=== PATIENT | male | born 1990 | race Caucasian/White ===

== ENCOUNTER 2018-07-24 19:16 | Emergency (ER) | payer MEDICAID ==
[2018-07-24] MEDS ORDERED: Sodium Chloride 0.9% 10 ML Syringe FLUSH PRN (20:20)
[2018-07-24] MEDS ORDERED: Ketorolac 30 MG/ML SDV IVPUSH ONE (20:20)
[2018-07-24] MEDS ORDERED: Ondansetron 4 MG/2 ML SDV IVPUSH ONE (20:20)
[2018-07-24] MEDS ORDERED: Sodium Chloride 0.9% 1,000 ML IV ONE ×2 (20:20→21:27)
--- NOTE | 2018-07-24 22:12 | EDM.PDOC ---
ED HPI GENERAL MEDICAL PROBLEM - General Chief Complaint: Gastrointestinal Problem Stated Complaint: VOMITING Time Seen by Provider: 07/24/18 20:13 Source of Information: Reports: Patient History Limitations: Reports: No Limitations - History of Present Illness INITIAL COMMENTS - FREE TEXT/NARRATIVE: This gentleman comes in with flulike symptoms since this morning. He said he's vomited a number of times. He has a low-grade fever but severe body aches and abdominal cramps. He did not get a flu shot. He says he doesn't believe in them. He hasn't had a bowel movement for about 2 days. 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: none - Related Data Allergies Allergy/AdvReac Type Severity Reaction Status Date / Time No Known Allergies Allergy Verified 07/24/18 19:34 Home Meds: Home Meds NK [No Known Home Meds] 07/24/18 [History] Social & Family History - Tobacco Use Smoking Status *Q: Never Smoker Second Hand Smoke Exposure: No - Caffeine Use Caffeine Use: Reports: Coffee, Energy Drinks Other Caffeine Use: moderation - Alcohol Use Days Per Week of Alcohol Use: 2 Number of Drinks Per Day: 4 Total Drinks Per Week: 8 - Recreational Drug Use Recreational Drug Use: No ED ROS GENERAL - Review of Systems Review Of Systems: See Below Constitutional: Reports: Fever, Chills HEENT: Reports: No Symptoms Respiratory: Reports: No Symptoms Cardiovascular: Reports: No Symptoms Endocrine: Reports: No Symptoms GI/Abdominal: Reports: Abdominal Pain, Vomiting. Denies: Diarrhea : Reports: No Symptoms Musculoskeletal: Reports: No Symptoms Skin: Reports: No Symptoms Neurological: Reports: No Symptoms Psychiatric: Reports: No Symptoms Hematologic/Lymphatic: Reports: No Symptoms Immunologic: Reports: No Symptoms ED EXAM, GI/ABD - Physical Exam Exam: See Below Exam Limited By: No Limitations General Appearance: Alert, WD/WN, Mild Distress Eyes: Bilateral: Normal Appearance Ears: Normal External Exam Nose: Normal Inspection Throat/Mouth: Normal Inspection Head: Atraumatic Neck: Normal Inspection Respiratory/Chest: No Respiratory Distress, Lungs Clear Cardiovascular: Normal Peripheral Pulses, Regular Rate, Rhythm, No Murmur GI/Abdominal Exam: Normal Bowel Sounds, Soft, Non-Tender Back Exam: Normal Inspection Extremities: Normal Inspection Neurological: Alert, Oriented Psychiatric: Normal Affect Skin Exam: Warm, Dry Course - Vital Signs Last Recorded V/S: Last Vital Signs Temp 38.0 C 07/24/18 19:35 Pulse 109 H 07/24/18 19:35 Resp 16 07/24/18 19:35 BP 132/86 07/24/18 19:35 Pulse Ox 98 07/24/18 19:35 - Orders/Labs/Meds Orders: Active Orders 24 hr Category Date Time Status Sodium Chloride 0.9% [Normal Saline] 1,000 ml Med 07/24/18 21:27 Active IV .BOLUS Sodium Chloride 0.9% [Saline Flush] Med 07/24/18 20:20 Active 10 ml FLUSH ASDIRECTED PRN Saline Lock Insert [OM.PC] Urgent Oth 07/24/18 20:19 Ordered Medication Orders Sodium Chloride (Normal Saline) 1,000 mls @ 999 mls/hr IV .BOLUS ONE Stop: 07/24/18 22:27 Last Admin: 07/24/18 21:43 Dose: 999 mls/hr Sodium Chloride (Saline Flush) 10 ml FLUSH ASDIRECTED PRN PRN Reason: Keep Vein Open Last Admin: 07/24/18 20:59 Dose: 10 ml Labs: Laboratory Tests 07/24/18 07/24/18 07/24/18 Range/Units 20:44 20:44 21:14 WBC 8.7 (4.5-11.0) K/uL RBC 5.35 (4.30-5.90) M/uL Hgb 15.9 H (12.0-15.0) g/dL Hct 46.2 (40.0-54.0) % MCV 86 (80-98) fL MCH 30 (27-31) pg MCHC 34 (32-36) % Plt Count 199 (150-400) K/uL Neut % (Auto) 88 H (36-66) % Lymph % (Auto) 4 L (24-44) % [place] % (Auto) 8 H (2-6) % Eos % (Auto) 0 L (2-4) % Baso % (Auto) 0 (0-1) % Sodium 138 L (140-148) mmol/L Potassium 3.5 L (3.6-5.2) mmol/L Chloride 100 (100-108) mmol/L Carbon Dioxide 27 (21-32) mmol/L Anion Gap 14.5 H (5.0-14.0) mmol/L BUN 25 H (7-18) mg/dL Creatinine 1.2 (0.8-1.3) mg/dL Est Cr Clr Drug Dosing 86.40 mL/min Estimated GFR (MDRD) > 60 (>60) Glucose 121 H (74-106) mg/dL Calcium 8.7 (8.5-10.1) mg/dL Total Bilirubin 0.5 (0.2-1.0) mg/dL AST 23 (15-37) U/L ALT 31 (12-78) U/L Alkaline Phosphatase 57 (46-116) U/L Total Protein 7.1 (6.4-8.2) g/dL Albumin 3.7 (3.4-5.0) g/dL Globulin 3.4 (2.3-3.5) g/dL Albumin/Globulin Ratio 1.1 L (1.2-2.2) Urine Color Yellow Urine Appearance Clear Urine pH 5.0 (4.5-8.0) Ur Specific [place] 1.020 (1.008-1.030) Urine Protein Negative (NEGATIVE) mg/dL Urine Glucose (UA) Normal (NEGATIVE) mg/dL Urine Ketones 50 H (NEGATIVE) mg/dL Urine Occult Blood Negative (NEGATIVE) Urine Nitrite Negative (NEGAITVE) Urine Bilirubin Negative (NEGATIVE) Urine Urobilinogen Normal (NORMAL) mg/dL Ur Leukocyte Esterase Negative (NEGATIVE) Urine RBC Not seen (0-5) Urine WBC Not seen (0-5) Ur Epithelial Cells Rare Amorphous Sediment Not seen Urine Bacteria Not seen Urine Mucus Moderate Meds: Medications Generic Name Dose Route Start Last Admin Trade Name Freq PRN Reason Stop Dose Admin Sodium Chloride 1,000 mls @ 999 mls/hr 07/24/18 21:27 07/24/18 21:43 Normal Saline IV 07/24/18 22:27 999 mls/hr .BOLUS ONE Administration Sodium Chloride 10 ml 07/24/18 20:20 07/24/18 20:59 Saline Flush FLUSH 10 ml ASDIRECTED PRN Administration Keep Vein Open Discontinued Medications Generic Name Dose Route Start Last Admin Trade Name Freq PRN Reason Stop Dose Admin Sodium Chloride 1,000 mls @ 999 mls/hr 07/24/18 20:20 07/24/18 20:42 Normal Saline IV 07/24/18 21:20 999 mls/hr .BOLUS ONE Administration Ketorolac Tromethamine 30 mg 07/24/18 20:20 07/24/18 20:54 Toradol IVPUSH 07/24/18 20:21 30 mg ONETIME ONE Administration Ondansetron HCl 4 mg 07/24/18 20:20 07/24/18 20:51 Zofran IVPUSH 07/24/18 20:21 4 mg ONETIME ONE Administration - Re-Assessments/Exams Free Text/Narrative Re-Assessment/Exam: 07/24/18 22:10 This patient received 2 L IV normal saline. Shortly after the first liter he said he felt 100% better. He also received Zofran 4 mg IV. Departure - Departure Time of Disposition: 22:10 Disposition: Home, Self-Care 01 Condition: Fair Clinical Impression: Influenza-like illness - Discharge Information Referrals: PCP,None [Primary Care Provider] - Additional Instructions: For vomiting use the ondansetron 4 mg (#10) 1 sublingual every 8 hours. If one tablet doesn't work you could switch to 2 tablets. Clear liquid diet for the next 24 hours. This is a viral illness and like a viral stomach flu but the influenza test was negative. It's contagious just like the flu or any other viral infection. You' ll be contagious until after you are well and without fever or other symptoms for at least 24 hours - My Orders Last 24 Hours: My Active Orders 07/24/18 20:19 Saline Lock Insert [OM.PC] Urgent 07/24/18 20:20 Sodium Chloride 0.9% [Saline Flush] 10 ml FLUSH ASDIRECTED PRN 07/24/18 21:27 Sodium Chloride 0.9% [Normal Saline] 1,000 ml IV .BOLUS - Assessment/Plan Last 24 Hours: My Active Orders 07/24/18 20:19 Saline Lock Insert [OM.PC] Urgent 07/24/18 20:20 Sodium Chloride 0.9% [Saline Flush] 10 ml FLUSH ASDIRECTED PRN 07/24/18 21:27 Sodium Chloride 0.9% [Normal Saline] 1,000 ml IV .BOLUS
== END 2018-07-24 23:02 | disposition home or self-care (01) ==
LOC: JP.ED 19:16
DX: J11.1 Influenza due to unidentified influenza virus with other respiratory manifestations (principal)
CPT/HCPCS: 36415; 80053; 81001; 85025; 87804; 96361; 96374; 96375; 99284; J1885; J2405; J7030